=== PATIENT | female | born 1980 | race Caucasian/White ===

== ENCOUNTER 2017-10-15 18:48 | Emergency (ER) | payer SELFPAY ==
--- NOTE | 2017-10-15 19:33 | ERPHSYRPT ---
- History of Present Illness Time Seen by Provider: 10/15/17 19:16 Source: patient Exam Limitations: no limitations Patient Subjective Stated Complaint: Left leg pain Triage Nursing Assessment: Pt presents to the ED with complaints of left leg pain beginning today at 1400. Pt denies injury, states sudden onset with gradual worsening. Pt describes pain as numbness from toe up into the left hip. Pt able to ambulate with steady gait, no distress noted, skin PWD. Physician History: Pt started c/o tingling in her left toes at 2 PM, developed pain, radiating up to her left calf and hip. She denies any fall, injury or other complaints, no chest pain, cough, SOB, or fever. Method of Injury: other (denies) Quality: constant Severity of Pain-Max: none Severity of Pain-Current: none Lower Extremities Pain: leg: left, foot: left Modifying Factors: Improves With: nothing Associated Symptoms: none Allergies/Adverse Reactions: No Known Drug Allergies Allergy (Verified 10/15/17 19:01) Home Medications: Lisinopril/Hydrochlorothiazide [Lisinopril-Hctz 20-12.5 mg Tab] 1 each PO DAILY 10/15/17 [History] Hx Tetanus, Diphtheria Vaccination/Date Given: Yes Hx Influenza Vaccination/Date Given: No Hx Pneumococcal Vaccination/Date Given: No Immunizations Up to Date: Yes - Review of Systems Constitutional: No Symptoms Musculoskeletal: Other (left leg pain) All Other Systems: Reviewed and Negative - Past Medical History Pertinent Past Medical History: Yes Neurological History: No Pertinent History ENT History: No Pertinent History Cardiac History: Hypertension, Other Respiratory History: No Pertinent History Endocrine Medical History: No Pertinent History Musculoskeletal History: No Pertinent History GI Medical History: No Pertinent History History: No Pertinent History Psycho-Social History: No Pertinent History Female Reproductive Disorders: No Pertinent History Other Medical History: Heart Murmur - Past Surgical History Past Surgical History: Yes Neuro Surgical History: No Pertinent History Cardiac: No Pertinent History Respiratory: No Pertinent History Gastrointestinal: No Pertinent History Genitourinary: No Pertinent History Musculoskeletal: No Pertinent History Female Surgical History: Section, Tubal Ligation Other Surgical History: DNC, x2 - Social History Smoking Status: Current every day smoker How long have you smoked: 20 years Exposure to second hand smoke: Yes Drug Use: none Patient Lives Alone: No - Female History Hx Now: No - Nursing Vital Signs Nursing Vital Signs: Initial Vital Signs Temperature 98.8 F 10/15/17 18:54 Pulse Rate 95 H 10/15/17 18:54 Respiratory Rate 16 10/15/17 18:54 Blood Pressure 167/105 10/15/17 18:54 O2 Sat by Pulse Oximetry 99 10/15/17 18:54 Pain Scale Pain Intensity 4 - Physical Exam General Appearance: no apparent distress Eyes, Ears, Nose, Throat Exam: normal ENT inspection Neck Exam: normal inspection Cardiovascular/Respiratory Exam: chest non-tender, normal breath sounds, regular rate/rhythm, heart sounds normal, No no JVD Gastrointestinal/Abdominal Exam: non-tender, soft, no organomegaly Back Exam: normal inspection, No CVA tenderness Legs Exam: left leg: pain (diffuse lef leg pain, no swelling, defomrity or discoloration, good distal pulses.) Neuro/Tendon Exam: normal motor functions Mental Status Exam: alert, oriented x 3 Skin Exam: normal color, warm, dry, No rash SpO2 Interpretation: normal SpO2: 99 Oxygen Delivery: Room Air - Course Nursing assessment & vital signs reviewed: Yes - Radiology Exams Lower Leg X-ray Interpretation: Interpreted by me, Negative - Radiology Ultrasound Exam Venous Lower Extremity Ultrasound: tele radiology report, negative Ordered Tests: Active Orders 24 hr Category Date Time Status LOWER LEG Stat Exams 10/15/17 20:39 Taken VENOUS UNILAT/LIMITED EXTREMIT [US] Stat Exams 10/15/17 20:46 Taken CBC W DIFF Stat Lab 10/15/17 19:40 Completed CK-Creatinine Phosphokinase Stat Lab 10/15/17 19:40 Completed CMP Stat Lab 10/15/17 19:40 Completed D-DIMER QUANTITATION Stat Lab 10/15/17 19:40 Completed MAGNESIUM Stat Lab 10/15/17 19:40 Completed NT PRO BNP Stat Lab 10/15/17 19:40 Completed PROTIME WITH INR Stat Lab 10/15/17 19:40 Completed PTT Stat Lab 10/15/17 19:40 Completed Uric Acid Stat Lab 10/15/17 19:40 Completed Lab/Rad Data: Laboratory Result Diagrams 10/15/17 19:40 10/15/17 19:40 Laboratory Results 10/15/17 10/15/17 10/15/17 Range/Units 19:40 19:40 19:40 WBC 7.1 (4.0-10.5) K/mm3 RBC 3.73 L (4.1-5.4) M/mm3 Hgb 11.9 L (12.0-16.0) gm/dl Hct 35.1 (35-47) % MCV 94.1 (78-100) fl MCH 31.9 (26-32) pg MCHC 33.9 (32-36) g/dl RDW 12.7 (11.5-14.0) % Plt Count 262 (150-450) K/mm3 MPV 9.5 (6-9.5) fl Gran % 59.7 (36.0-66.0) % Eos # (Auto) 0.19 (0-0.5) Absolute Lymphs (auto) 2.17 (1.0-4.6) Absolute Monos (auto) 0.46 (0.0-1.3) Lymphocytes % 30.5 (24.0-44.0) % Monocytes % 6.5 (0.0-12.0) % Eosinophils % 2.7 (0.00-5.0) % Basophils % 0.6 (0.0-0.4) % Absolute Granulocytes 4.26 (1.4-6.9) Basophils # 0.04 (0-0.4) PT 10.9 (9.95-12.35) SECONDS INR 0.94 (0.8-3.0) APTT 30.3 (25.3-37.0) SECONDS D-Dimer 495 (215-500) ng/mL Sodium 142 (137-145) mmol/L Potassium 3.7 (3.5-5.1) mmol/L Chloride 108 H (98-107) mmol/L Carbon Dioxide 25 (22-30) mmol/L Anion Gap 13.2 (5-15) MEQ/L BUN 11 (7-17) mg/dL Creatinine 0.81 (0.52-1.04) mg/dL Estimated GFR > 60.0 ML/MIN Glucose 96 (74-106) mg/dL Uric Acid 5.0 (2.6-6.0) mg/dL Calcium 9.1 (8.4-10.2) mg/dL Magnesium 2.1 (1.6-2.3) mg/dL Total Bilirubin 0.20 (0.2-1.3) mg/dL AST 11 L (14-36) U/L ALT 9 (0-35) U/L Alkaline Phosphatase 68 (38-126) U/L Creatine Kinase 44 (30-135) U/L NT-Pro-B Natriuret Pep 314 (0-450) pg/mL Serum Total Protein 6.4 (6.3-8.2) g/dL Albumin 3.7 (3.5-5.0) g/dL - Progress Progress: unchanged Progress Note: 10/15/17 21:24 Results discussed with patient and her , she is getting discharged in stable condition, to rest x 2-3 days with elevated leg, apply ice or cold compresses to leg, return if severe pain, swelling, discoloration of the toes, and follow up with her PCP next week. Counseled pt/family regarding: lab results, diagnosis, need for follow-up, rad results - Departure Time of Disposition: 21:25 Departure Disposition: Home Clinical Impression: Leg pain Qualifiers: Laterality: left Qualified Code(s): M79.605 - Pain in left leg Condition: Stable Critical Care Time: No Referrals: DESIREE MCELROY, [employer] [Primary Care Provider] - Instructions: Nocturnal (Nighttime) Leg Cramps Additional Instructions: Rest x 2-3 days with elevated leg, apply ice or cold compresses to painful area , return if severe pain, swelling, discoloration of the toes!
[2017-10-15 19:46] LABS: BASOPHIL % 0.6 % (0.0-0.4); Basophil (Absolute #) 0.04 (0-0.4); Eosinophil % 2.7 % (0.00-5.0); Eosinophil (Absolute #) 0.19 (0-0.5); Granulocyte Absolute (ANC) 4.26 (1.4-6.9); Granulocytes % 59.7 % (36.0-66.0); Hematocrit 35.1 % (35-47); Hemoglobin 11.9 gm/dl (12.0-16.0); Lymphocyte (Absolute #) 2.17 (1.0-4.6); Lymphocytes % 30.5 % (24.0-44.0); Mean Cell Volume 94.1 fl (78-100); Mean Corpuscular Hemoglobin 31.9 pg (26-32); Mean Corpuscular Hgb Concent. 33.9 g/dl (32-36); Mean Platelet Volume 9.5 fl (6-9.5); Monocyte (Absolute #) 0.46 (0.0-1.3); Monocytes % 6.5 % (0.0-12.0); Platelet Count 262 K/mm3 (150-450); Red Blood Count 3.73 M/mm3 (4.1-5.4); Red Cell Distribution Width 12.7 % (11.5-14.0); White Blood Count 7.1 K/mm3 (4.0-10.5)
[2017-10-15 20:02] LABS: INR 0.94 (0.8-3.0)
[2017-10-15 20:05] LABS: PTT 30.3 SECONDS (25.3-37.0)
[2017-10-15 20:06] LABS: ALBUMIN 3.7 g/dL (3.5-5.0); ALKALINE PHOSPHATASE 68 U/L (38-126); ANION GAP 13.2 MEQ/L (5-15); BLOOD UREA NITROGEN 11 mg/dL (7-17); CHLORIDE 108 mmol/L (98-107); CK-Creatinine Phosphokinase 44 U/L (30-135); Calcium 9.1 mg/dL (8.4-10.2); Carbon Dioxide 25 mmol/L (22-30); Creatinine 1 0.81 mg/dL (0.52-1.04); Glucose 96 mg/dL (74-106); Potassium 3.7 mmol/L (3.5-5.1); SGOT/AST 11 U/L (14-36); SGPT/ALT 9 U/L (0-35); SODIUM 142 mmol/L (137-145); Total Protein 6.4 g/dL (6.3-8.2)
[2017-10-15 20:14] LABS: NT PRO BNP 314 pg/mL (0-450)
[2017-10-15 20:22] VITALS: BP 118/96; PULSE 84
[2017-10-15 21:27] VITALS: O2SAT 99
--- NOTE | 2017-10-16 07:59 | XRAY ---
Indication: Pain. No known injury. Comparison: None 2 views of the left lower leg obtained. No bony, articular, or soft tissue abnormalities.
--- NOTE | 2017-10-16 08:01 | XRAY ---
Indication: Left lower extremity pain and edema. Two-dimensional sonogram and color Doppler imaging of the major venous vessels of the left leg was performed. Comparison: None No thrombus seen in the examined deep venous vessels of the left leg including greater saphenous vein. Veins demonstrate normal compressibility. Venous waveforms are normal with and without augmentation. Impression: Left leg negative for DVT. Comment: Preliminary report was given.
== END 2017-10-15 21:38 | disposition home or self-care (01) ==
LOC: ED 18:48
DX: M79.605 Pain in left leg (principal); I10 Essential (primary) hypertension; Z79.899 Other long term (current) drug therapy
CPT/HCPCS: 36415; 73590; 80053; 82550; 83735; 83880; 84550; 85025; 85379; 85610; 85730; 93971; 99284